=== PATIENT | female | born 1955 | race Caucasian/White ===

== ENCOUNTER → 2017-03-26 | Outpatient (CLI) | payer OTHER ==
[~2017-03-26] MED LIST: CENTRUM SILVER1 EAC4 PO; COZAAR100 MG PO; IBUPROFEN 200200 M1 PO; LEVOTHYROXINE 0.15MG PO; LEVOTHYROXINE0.2 M1 PO; LISINOPRIL20 MG PO; LORTAB 10 MG-3473 ML PO; MOM; ONDANSETRON HCL4 M2 PO; PEPCID40 MG PO; TUMS PO; VITAMIN B-12100 MC1 PO; VITAMIN D1000 UNI1 PO; VITAMINC500 PO; ZYRTEC10 M5 PO
== END ==
LOC: RAD 14:59
DX: Z12.31 Encounter for screening mammogram for malignant neoplasm of breast (principal)

== ENCOUNTER → 2017-03-29 | Outpatient (CLI) | payer OTHER | LOC: NUC 11:35 | DX: M81.0 Age-related osteoporosis without current pathological fracture (principal); Z78.0 Asymptomatic menopausal state ==

== ENCOUNTER → 2017-04-16 | Outpatient (CLI) | payer OTHER ==
[~2017-04-16] VITALS: Ht 157.5 cm; Wt 9.1 kg
--- NOTE | ~2017-04-16 | P ---
[facility] [place] [address] PROCEDURE REPORT Name: ISSAC CRAWFORD Room #: REG [facility]#: [id number] Admission: 04/16/17 Attend Phys: Simeon Bowden MD Discharge: Date of : 59 Report #: [id number] THIS REPORT FOR: //name// CC: Simeon Spears MD BRIEF HISTORY: The patient is a 62-year-old woman with a previous history of colon polyps for surveillance colonoscopy due to her previous history of colon polyps. PREOPERATIVE DIAGNOSIS: History of colon polyps. POSTOPERATIVE DIAGNOSES: 1. Moderately severe left-sided diverticulosis coli. 2. Perianal fistula/sinus. MEDICATIONS: Deep sedation with propofol per anesthesia. SPECIMEN: None. ESTIMATED BLOOD LOSS: None. PROCEDURE: Colonoscopy to cecum and terminal ileum. FINDINGS: Prior to propofol sedation, procedure of colonoscopy discussed with the patient as well as potential risks and its complications. She indicates she understands and desires to proceed. DESCRIPTION OF PROCEDURE: With the patient in left lateral decubitus position, digital examination was completed, which revealed no abnormalities. Subsequently, the [employer] video colonoscope was introduced into the rectum, advanced under direct vision to the cecum. Done with minimal difficulty. The cecum was identified by the ileocecal valve and the appendiceal orifice. I was able to advance the scope into the distal terminal ileum and the distal segment was unremarkable. At that point, the scope was slowly withdrawn and careful circumferential views were obtained. There were some limitations of prep throughout the colon. There was some liquidy fecal material scattered about. With irrigation and suctioning, we were able to overall obtain a reasonably good prep. As we withdrew the scope, the mucosa was within normal limits, normal vascular pattern, normal light reflex. As the scope was withdrawn into the left colon, there was noted to be moderately severe diverticular disease without endoscopic evidence of diverticulitis. No neoplastic lesions were seen during this exam. As we withdrew the scope into the upper rectum, a tattoo michael was seen. The area was inspected and no residual polyp tissue was seen. Scope was withdrawn in the distal rectum and no abnormalities were seen. However, upon retroflexion, ____ just proximal to the anal verge was seen the mouth of what [facility] [address] [place] [address] PROCEDURE REPORT Name: ISSAC CRAWFORD Room #: REG [facility]#: [id number] Admission: 04/16/17 Attend Phys: Simeon Bowden MD Discharge: Date of : 59 Report #: [id number] may be a fistula or a sinus. It was symmetrical smooth and benign. There were no ulcerations or inflammatory change. This appears to be old. On perianal inspection, I could not see any external fistula tract. Scope was withdrawn. The patient tolerated the procedure well. CONDITION OF THE PATIENT UPON DISCHARGE: Following procedure, the patient drowsy, aroused, conversant and will be discharged home when fully ambulatory. INSTRUCTIONS TO THE PATIENT AND FAMILY AT THE TIME OF DISCHARGE: The patient had previous polyp. She had at 1.5 cm pedunculated polyp removed by Dr. Escobedo in 2013. Since this was an advanced adenoma, I have suggested return in 5 years for followup colonoscopy. I do not see mention of a fistula tract in Dr. Escobedo's report. We will discuss further with the patient. Endoscopically, this appears to be an old tract. She will return to care of Dr. Jeannie Spears, return to see me as needed. Last colonoscopy was more than 3 years ago. Withdrawal time from the cecum including clean up was 20 minutes. <ELECTRONICALLY SIGNED> By: Simeon Bowden MD 04/17/17 0658 0816 1045 Simeon Bowden MD /nt
== END | disposition home or self-care (01) ==
LOC: GI 06:18
DX: Z09 Encounter for follow-up examination after completed treatment for conditions other than malignant neoplasm (principal); K57.30 Diverticulosis of large intestine without perforation or abscess without bleeding; K60.3 Anal fistula; I10 Essential (primary) hypertension; G47.33 Obstructive sleep apnea (adult) (pediatric); E03.9 Hypothyroidism, unspecified; Z87.891 Personal history of nicotine dependence; Z90.710 Acquired absence of both cervix and uterus; Z98.890 Other specified postprocedural states; Z79.899 Other long term (current) drug therapy; Z88.8 Allergy status to other drugs, medicaments and biological substances
CPT/HCPCS: 62110; 62900

== ENCOUNTER → 2018-08-04 | Outpatient (CLI) | payer OTHER | LOC: RAD 09:33 | DX: M17.11 Unilateral primary osteoarthritis, right knee (principal); M25.551 Pain in right hip; M25.521 Pain in right elbow; Z88.8 Allergy status to other drugs, medicaments and biological substances ==

== ENCOUNTER → 2018-08-10 | Outpatient (CLI) | payer OTHER | LOC: CAT 09:56 | DX: S50.01XA Contusion of right elbow, initial encounter (principal); X58.XXXA Exposure to other specified factors, initial encounter; Y93.89 Activity, other specified; Y92.89 Other specified places as the place of occurrence of the external cause; Y99.8 Other external cause status ==

== ENCOUNTER → 2019-05-01 | Outpatient (CLI) | payer OTHER | LOC: RAD 16:23 | DX: J98.4 Other disorders of lung (principal); M17.0 Bilateral primary osteoarthritis of knee; M47.814 Spondylosis without myelopathy or radiculopathy, thoracic region; Q33.1 Accessory lobe of lung; Z88.5 Allergy status to narcotic agent ==

== ENCOUNTER → 2020-03-01 | Outpatient (CLI) | payer OTHER | LOC: ULTRA 12:58 | PROVIDERS: ATTEND Nurse Practitioner | DX: R19.03 Right lower quadrant abdominal swelling, mass and lump (principal) ==

== ENCOUNTER → 2020-05-24 | Day surgery (SDC) | payer OTHER ==
[~2020-05-24] VITALS: Ht 157.5 cm; Wt 90.7 kg
[~2020-05-24] MED LIST changes: +ACETAMINOPHEN325 M1 PO; +AZELASTINE137 MCG/0. NASAL; +COLACE 100 MG100 MG PO; +ERYTHROMYCIN E3.5 G2 INH; +LEVOXYL150 MCG PO; +MIRALAX17 GM PO; +OXYCODONE HCL 55 MG PO; +PROBIOTIC1 EAC7 PO; +XYZAL5 MG PO
[2020-05-24 08:05] VITALS: BP 153/93
--- NOTE | 2020-05-24 08:38 | EKG ---
[facility] [place] [address] ELECTROCARDIOGRAM REPORT Name: ISSAC CRAWFORD Room #: REG [facility].R.#: [id number] Admission: 05/24/20 Attend Phys: Paulie Hendrickson MD Discharge: Date of : 59 Report #: [id number] THIS REPORT FOR: cc: Luci Khalil Beth RNP Couchonnal, Luis F. MD ~ THIS REPORT FOR: //name// [facility] Test Date: 2020-05-24 Test Time: 08:01:23 Pat Name: ISSAC CRAWFORD Department: Room: Gender: F Electronics Inspector: LEVI : 1955 Requested By: Tiara Juan Order Number: [id number] MD: Jorge Sunshine Measurements Intervals [place] Rate: 72 P: -13 OK: 174 QRS: -29 QRSD: 83 T: 64 QT: 412 QTc: 451 Interpretive Statements Sinus rhythm Inferior infarct, old Compared to ECG 08/23/2012 17:13:26 Myocardial infarct finding now present Left-axis deviation no longer present Poor R-wave progression no longer present Electronically Signed On 05-24-2020 8:37:54 CDT by Jorge Sunshine [email or web address] <ELECTRONICALLY SIGNED> By: Jorge Sunshine MD 05/24/2037 0 0 Jorge Sunshine MD /EPI
[2020-05-24 10:48] VITALS: BP 153/93
--- NOTE | 2020-05-27 15:07 | PATH ---
[facility] [place] [address] PATHOLOGY RPT PROCEDURE Name: MATY CRAWFORD Room #: REG [facility] M.R.#: [id number] Admission: 05/24/20 Date of : 59 Discharge: Report #: [id number] Path Case #: [id number] LCA Accession Number: [id number] . 01 Material submitted: . PART A: back - RIGHT LATERAL BACK MASS. Modifiers: right, lateral PART B: back - RIGHT MEDIAL BACK MASS. Modifiers: right, medial . 01 Clinical history: . EXCISION MASS LOWER BACK . 02 Diagnosis: A. Mature adipose tissue, right lateral back mass, excision: - Compatible with a lipoma. . B. Mature adipose tissue, right medial back mass, excision: - Compatible a lipoma. . (IUV:kami; 05/27/2020) MBR 05/27/2020 1300 Local . 02 Electronically signed: . Britt Suazo MD, Pathologist NPI- [id number] . 01 Gross description: . A. The specimen is received in formalin, labeled "Maty Crawford, right lateral back mass". Received is a segment of yellow-saenz lobulated tissue measuring 8.8 x 5.8 x 2.6 cm in greatest dimensions. Sectioning reveals bright yellow cut surfaces with no grossly distinct nodules or lesions. The specimen is submitted representatively in cassette A1 and A2. . B. The specimen is received in formalin, labeled "Maty Crawford, right medial back mass". Received are two segments of bright yellow lobulated tissue measuring 4.3 x 3.1 x 1.5 cm in aggregate dimensions. Sectioning reveals bright yellow cut surfaces with no grossly distinct nodules or lesions. The specimen is submitted representatively in cassette B1. (CAA; 05/24/2020) QA/QA 05/24/2020 1629 Local . 02 Pathologist provided ICD-10: D17.1 . 02 CPT . 058897, 535536 Specimen Comment: A courtesy copy of this report has been sent to [phone], [phone] [place] [address] PATHOLOGY RPT PROCEDURE Name: MATY CRAWFORD Room #: REG [facility] M.R.#: [id number] Admission: 05/24/20 Date of : 59 Discharge: Report #: [id number] Path Case #: [id number] Specimen Comment: [id number] Specimen Comment: Report sent to / DR FIERRO Performed at: [address], [place] [id number] MD Sravan Miller MD Phone: [phone] Performed at: [address] [id number] MD Britt Suazo MD Phone: [phone]
== END | disposition home or self-care (01) ==
LOC: OR 07:33
PROVIDERS: ATTEND Surgery
DX: D17.1 Benign lipomatous neoplasm of skin and subcutaneous tissue of trunk (principal); I10 Essential (primary) hypertension; E03.9 Hypothyroidism, unspecified; J45.909 Unspecified asthma, uncomplicated; G47.30 Sleep apnea, unspecified; Z98.890 Other specified postprocedural states; Z79.899 Other long term (current) drug therapy; Z98.84 Bariatric surgery status; Z90.710 Acquired absence of both cervix and uterus; Z87.891 Personal history of nicotine dependence; Z20.828 Contact with and (suspected) exposure to other viral communicable diseases; Z88.8 Allergy status to other drugs, medicaments and biological substances
CPT/HCPCS: 50010; 50101; 50386; 50417; 56524; 56527; 62110; 62900; 70005

== ENCOUNTER → 2020-11-29 | Outpatient (CLI) | payer OTHER | LOC: LAB 08:55 | PROVIDERS: ATTEND Nurse Practitioner | DX: J30.2 Other seasonal allergic rhinitis (principal) ==

== ENCOUNTER → 2020-12-11 | Outpatient (CLI) | payer OTHER ==
[2020-12-11 09:16] LABS: ABSOLUTE NEUTROPHILS 5.5 thou/uL (1.4-8.2); BASOPHILS 1.1 % (0.0-2.0); EOSINOPHILS 2.3 % (0.0-3.0); HEMATOCRIT 42.4 % (37.0-47.0); HEMOGLOBIN 14.2 gm/dL (12.0-15.0); LYMPHOCYTES 30.3 % (24.0-44.0); MCH 29.4 pg (26.0-34.0); MCHC 33.5 g/dL (28.0-37.0); MCV 87.8 fL (80.0-100.0); MONOCYTES 7.3 % (1.0-8.0); PLATELET COUNT 347 thou/uL (150-400); RBC 4.82 mil/uL (4.20-5.00); RDW 13.7 % (10.5-14.5); WBC 9.3 thou/uL (4.0-11.0)
[2020-12-11 09:17] LABS: URINE BILIRUBIN NEGATIVE (Negative); URINE BLOOD NEGATIVE (Negative); URINE CLARITY CLEAR; URINE COLOR YELLOW; URINE GLUCOSE-RANDOM* NEGATIVE (Negative); URINE KETONES NEGATIVE (Negative); URINE LEUKOCYTES NEGATIVE (Negative); URINE NITRITE NEGATIVE (Negative); URINE PROTEIN (DIPSTICK) NEGATIVE (Negative); URINE UROBILINOGEN 0.2 E.U./dl (0.2-1.0)
[2020-12-11 09:38] LABS: ALBUMIN 3.9 g/dL (3.4-5.0); ANION GAP 8 mmol/L (7-16); BUN 13 mg/dL (7-18); CALCIUM 9.3 mg/dL (8.5-10.1); CHLORIDE 104 mmol/L (98-107); CHOLESTEROL 218 mg/dL (<200); CO2 26 mmol/L (21-32); CREATININE 0.9 mg/dL (0.6-1.0); GLUCOSE 116 mg/dL (74-106); HDL CHOLESTEROL 75 mg/dL (>40); LDL CHOLESTEROL 125 mg/dL (<100); POTASSIUM 4.2 mmol/L (3.5-5.1); SGOT 19 U/L (15-37); SGPT 22 U/L (30-65); SODIUM 138 mmol/L (136-145); TC:HDL 2.9 Ratio (Not establshd); TOTAL BILIRUBIN 0.9 mg/dL (0.2-1.0); TOTAL PROTEIN 7.7 g/dL (6.4-8.2); TRIGLYCERIDE 90 mg/dL (<150); VLDL 18 mg/dL (<40)
== END ==
LOC: LAB 08:38
PROVIDERS: ATTEND Nurse Practitioner
DX: Z00.00 Encounter for general adult medical examination without abnormal findings (principal)

== ENCOUNTER → 2020-12-12 | Outpatient (CLI) | payer OTHER | LOC: BC 08:29 | PROVIDERS: ATTEND Nurse Practitioner | DX: Z12.31 Encounter for screening mammogram for malignant neoplasm of breast (principal) ==

== ENCOUNTER → 2021-02-10 | Outpatient (CLI) | payer OTHER | LOC: RAD 13:25 | PROVIDERS: ATTEND Internal Medicine Pulmonary Disease | DX: J45.991 Cough variant asthma (principal) ==

== ENCOUNTER → 2021-07-16 | Outpatient (CLI) | payer OTHER ==
[~2021-07-16] MED LIST changes: +CLARITIN10 M3 PO; +PROAIR HFA8.5 GM INH
[2021-07-16 09:01] LABS: HEMOGLOBIN 12.9 gm/dL (12.0-15.0); MCH 29.1 pg (26.0-34.0); MCHC 33.1 g/dL (28.0-37.0); RBC 4.43 mil/uL (4.20-5.00); RDW 13.1 % (10.5-14.5); WBC 6.5 thou/uL (4.0-11.0)
[2021-07-16 09:09] LABS: ALBUMIN 3.5 g/dL (3.4-5.0); CALCIUM 8.7 mg/dL (8.5-10.1); CREATININE 0.7 mg/dL (0.6-1.0); POTASSIUM 4.3 mmol/L (3.5-5.1)
[2021-07-16 09:12] LABS: INR 0.96; PROTIME 10.5 Seconds (10.5-12.1)
[2021-07-16 09:39] LABS: URINE BILIRUBIN NEGATIVE (Negative); URINE BLOOD NEGATIVE (Negative); URINE CLARITY CLEAR; URINE COLOR YELLOW; URINE GLUCOSE-RANDOM* NEGATIVE (Negative); URINE KETONES NEGATIVE (Negative); URINE LEUKOCYTES-REFLEX NEGATIVE (Negative); URINE NITRITE-REFLEX NEGATIVE (Negative); URINE PROTEIN (DIPSTICK) NEGATIVE (Negative); URINE SPECIFIC GRAVITY <= 1.005 (1.005-1.035); URINE UROBILINOGEN 0.2 E.U./dl (0.2-1.0)
--- NOTE | 2021-07-16 10:23 | EKG ---
[address] [address] ELECTROCARDIOGRAM REPORT Name: ISSAC CRAWFORD Room #: REG [facility]#: [id number] Admission: 07/16/21 Attend Phys: Guido Edge MD Discharge: Date of : 59 Report #: [id number] [facility] Test Date: 2021-07-16 Test Time: 08:57:38 Pat Name: ISSAC CRAWFORD Department: Room: Gender: F Bull Ladle Tender: Raisa Fisher : 1955 Requested By: Guido Edge Order Number: [id number] MD: Bob Lugo Measurements Intervals Nesbit Rate: 74 P: -4 ID: 172 QRS: -23 QRSD: 86 T: 62 QT: 405 QTc: 450 Interpretive Statements Sinus rhythm Borderline left axis deviation Compared to ECG 05/24/2020 08:01:23 Myocardial infarct finding no longer present Electronically Signed On 07-16-2021 10:23:26 ANIMAL HUSBANDRY WORKER by Bbo Lugo [email or web address] <ELECTRONICALLY SIGNED> By: Bob Lugo MD, [facility] 07/16/21 1023 6 Bob Lugo MD, FAC /EPI
== END ==
LOC: PAC 08:02
PROVIDERS: ATTEND Orthopaedic Surgery
DX: Z01.812 Encounter for preprocedural laboratory examination (principal); Z01.810 Encounter for preprocedural cardiovascular examination; M17.11 Unilateral primary osteoarthritis, right knee

== ENCOUNTER 2021-07-23 11:45 | Observation (INO) | payer OTHER ==
[~2021-07-23] VITALS: Ht 157.5 cm; Wt 90.7 kg
[2021-07-23 13:55] VITALS: BP 132/66
[2021-07-23 18:05] VITALS: BP 117/61
[2021-07-23 19:54] VITALS: BP 117/52
[2021-07-24 04:41] VITALS: BP 117/70
[2021-07-24 08:44] VITALS: BP 113/52
--- NOTE | 2021-07-24 10:49 | O ---
[facility] [place] [address] OPERATIVE REPORT Name: ISSAC CRAWFORD Room #: 447-P [facility]#: [id number] Admission: 07/23/21 Attend Phys: Guido Edge MD Discharge: Date of : 59 Report #: [id number] THIS REPORT FOR: cc: Luci Khalil Beth RNP Abraham, Scott M. MD ~ DATE OF SERVICE: 07/23/2021 PREOPERATIVE DIAGNOSIS: Right knee osteoarthritis. POSTOPERATIVE DIAGNOSIS: Right knee osteoarthritis. PROCEDURE: Right total knee arthroplasty using Navio robotic assistance. SURGEON: Guido Edge MD SUPPLIER RELATIONSHIP DIRECTOR: Trudi Beyer PA-C INDICATION FOR SUPPLIER RELATIONSHIP DIRECTOR: Throughout the case, extensive retraction, manipulation of the knee was required. This was afforded to me by my entry level marketing assistant. ANESTHESIA: LMA with adductor canal block. IMPLANTS: A [employer]hew size 4 Journey II BCS Oxinium femur, a size 2 tibia, size 10 constrained polyethylene and size 29 patella. TOURNIQUET TIME: 46 minutes. ESTIMATED BLOOD LOSS: 25 mL. COMPLICATIONS: None. SPECIMENS: None. CONDITION UPON LEAVING THE OR: Stable. INDICATIONS FOR PROCEDURE: The patient is a 66-year-old female with right knee osteoarthritis. She had failed conservative measures for this and after discussion with her, she elected for right total knee arthroplasty. DESCRIPTION OF PROCEDURE: Risks, benefits, alternatives, complications were discussed in detail with the patient including but not limited to risk of anesthesia, risk of damage to nerves, arteries, blood vessels, risk for infection, bleeding, risk for continued knee pain, need for reoperation. Informed consent was obtained from the patient. The right knee was appropriately marked in the preoperative holding area. IV Ancef was given for [address] [address] OPERATIVE REPORT Name: ISSAC CRAWFORD Room #: 447-P [facility] [place]#: [id number] Admission: 07/23/21 Attend Phys: Guido Edge MD Discharge: Date of : 59 Report #: [id number] preoperative antibiotics. She was brought to the operating room and placed in the supine position on the operating room table. LMA anesthesia was induced without complication. Tourniquet was placed on the right thigh. Right lower extremity was prepped and draped in normal sterile fashion. Timeout was performed properly identifying the patient, procedure as well as the instrumentation and implants. All in the operating room in agreement. Right lower extremity was exsanguinated, tourniquet was inflated. Tourniquet time was 46 minutes. Standard midline approach to knee was made with 10 blade through the skin. Dissection was taken down sharply to the fascia and deep flaps were developed medially and laterally. Fresh 10 blade was used to make a medial parapatellar arthrotomy and the knee was inspected. There was moderate tricompartmental osteoarthritis. ACL and PCL were removed sharply. Reference pins were placed in the femur and the tibia. The knee was digitally mapped using the N[employer] robotic system. Intraoperative plan was made. We sized the size 4 femur, the size 2 tibia and a 10 spacer. After acceptance of the intraoperative plan, the distal femoral cut was made with Navio bur. Distal femoral cutting block was pinned in place and chamfer cuts were made. Attention was turned to the tibia. Remainder of the menisci removed with Bovie cautery. Tibial resection guide was pinned in place using Navio for placement and tibial resection was made. Flexion and extension gaps were checked and found to have good balance in flexion and extension both medially and laterally. Tibia sized, found to be a size 2. Size 2 tibial trial was placed, pinned and punched. A size 4 femoral trial was placed and the box cut was made. This was then trialed with a size 9 and then a size 10 polyethylene. Size 10 polyethylene demonstrated 1-1.5 mm of laxity medially throughout range of motion of the knee. She did demonstrate up to 3 mm laterally and deep flexion. It was felt we can make up for this with a constrained implant. A 9 mm of bone was resected from the posterior surface of the patella and a size 29 patellar trial button was placed. Knee was taken through range of motion, found to be stable, found to have good patellar tracking. Trial components were removed. Bone ends were thoroughly irrigated with normal saline. A final size 2 tibia, size 4 Oxinium Journey II BCS femoral component and a size 29 patella were cemented in place using standard cementation techniques. While the cement cured, a periarticular injection consisting of morphine, ropivacaine, epinephrine, Toradol was placed around the knee joint capsule. After the cement cured, tourniquet was deflated. Hemostasis was obtained with Bovie cautery. Final size 10 constrained polyethylene was placed. A gram of vancomycin was placed deep in the joint. The fascia was closed with 0 Vicryl. Skin was closed with 2-0 Vicryl, skin staple and a KEESHA dressing was applied. The patient tolerated this procedure well and went to the recovery room under care of Anesthesia postoperatively. <ELECTRONICALLY SIGNED> By: Guido Edge MD 07/24/21 1049 1455 1611 Guido Edge MD /nt
== END 2021-07-24 14:39 | disposition home or self-care (01) ==
LOC: OR 11:45 → 4S 17:40 → OR 17:41 → 4S 17:41
PROVIDERS: ADMIT Orthopaedic Surgery; ATTEND Orthopaedic Surgery
DX: M17.11 Unilateral primary osteoarthritis, right knee (principal); Z20.822 Contact with and (suspected) exposure to COVID-19; I10 Essential (primary) hypertension; G47.30 Sleep apnea, unspecified; M25.461 Effusion, right knee; Z79.899 Other long term (current) drug therapy; M17.12 Unilateral primary osteoarthritis, left knee; E66.9 Obesity, unspecified; S50.01XA Contusion of right elbow, initial encounter
CPT/HCPCS: 10102; 50010; 50101; 50415; 50954; 51130; 51225; 51412; 52001; 52282; 53000; 53078; 53365; 56527; 56528; 57095; 57103; 57110; 57127; 57180; 62110; 62900; 64039; 64043; 70005